=== PATIENT | male | born 1950 | race Caucasian/White ===

== ENCOUNTER 2018-11-21 13:06 | Emergency (ER) | payer OTHER, MEDICARE ==
[2018-11-21 13:16] VITALS: TEMP 97.6; BMI 32.3
--- NOTE | 2018-11-21 13:48 | PDOC ---
History of Present Illness - General Chief Complaint: Palpitations Stated Complaint: PALIPATATIONS Time Seen by Provider: 11/21/18 13:48 History Source: Patient Exam Limitations: No Limitations - History of Present Illness Initial Comments: Pt is a 68 yo M, with PMH of hypothyroidism (on synthroid 75 mcg/day), HLD, and sleep apnea, who is presenting via EMS after a sustained episode of palpitations and SVT (HR to 180s) for about 40 minutes. The pt states he has been playing tennis consistently for 5 days, did not eat this AM, and drank " too much coffee" this AM. When EMS arrived, they stated pt appeared to be in SVT on the monitor, with HR to the 180s, and then the SVT converted without intervention. Pt has never needed atropine in the past, but has had 1-2 other incidents with similar palpitations. Pt states he has a known RBBB, but has never been on any rate controlling medications or AC in the past. Pt denies any recent fevers/chills, headache, vision changes, syncope, chest pain, SOB, nausea /vomiting, abdominal pain, urinary symptoms, diarrhea/constipation, or leg swelling. Social: Pt denies any cigarette, alcohol, or drug use. Pt denies any recent travel or sick contacts. Surgical: no relevant history. Family: no relevant history. 11/21/18 17:14 Past History - Travel Traveled outside of the country in the last 30 days: No Close contact w/someone who was outside of country & ill: No - Past Medical History Allergies/Adverse Reactions: Allergies Allergy/AdvReac Type Severity Reaction Status Date / Time No Known Allergies Allergy Verified 11/21/18 13:15 Home Medications: Ambulatory Orders Aspirin 81 mg PO DAILY 11/21/18 Atorvastatin Ca [Lipitor] 40 mg PO HS 11/21/18 Gabapentin [Neurontin -] mg PO ASDIR 11/21/18 Levothyroxine Sodium [Levoxyl] mcg PO DAILY 11/21/18 Metoprolol Succinate 25 mg PO DAILY 30 Days #30 tab.er.24h 11/21/18 Cancer: Yes (bladder) Cardiac Disorders: Yes (known R bundle branch) Hx Myocardial Infarction: No COPD: No Hypercholesterolemia: Yes Thyroid Disease: Yes (hypo on synthroid) - Surgical History Abdominal Surgery: Yes (bladder sx s/p ca umbilical hernia repair.) - Suicide/Smoking/Psychosocial Hx Smoking History: Never smoked Have you smoked in the past 12 months: No Information on smoking cessation initiated: No Hx Alcohol Use: No Drug/Substance Use Hx: No Substance Use Type: None Hx Substance Use Treatment: No Review of Systems - Review of Systems Able to Perform ROS?: Yes Is the patient limited Citizen [place] proficient: No Constitutional: Yes: Weight Stable. No: Chills, Diaphoresis, Fever, Loss of Appetite, Malaise, Weakness HEENTM: No: Blurred Vision, Recent change in vision, Double Vision, Nose Congestion, Throat Pain, Throat Swelling Respiratory: No: Cough, Orthopnea, Shortness of Breath, Wheezing, Productive cough, Hemoptysis Cardiac (ROS): Yes: See HPI, Irregular Heart Rate, Palpitations. No: Chest Pain , Edema, Lightheadedness, Syncope, Chest Tightness ABD/GI: No: Constipated, Diarrhea, Nausea, Poor Appetite, Poor Fluid Intake, Vomiting : No: Burning, Dysuria, Frequency, Pain, Urgency Musculoskeletal: No: Back Pain, Joint Pain, Muscle Pain, Muscle Weakness Integumentary: No: Flushing, Rash, Sweating Neurological: No: Headache, Numbness, Paresthesia, Tingling, Weakness, Unsteady Gait, Ataxia, Dizziness Psychiatric: No: Sleep Pattern Change, Change in Appetite Endocrine: No: Flushing, Intolerance to Cold, Intolerance to Heat, Increased Hunger, Increased Thirst, Increased Urine, Change in Weight Hematologic/Lymphatic: No: Anemia, Blood Clots, Easy Bleeding, Easy Bruising All Other Systems: Reviewed and Negative *Physical Exam - Vital Signs Last Vital Signs Temp Pulse Resp BP Pulse Ox 97.6 F 80 16 132/78 100 11/21/18 13:10 11/21/18 13:10 11/21/18 13:10 11/21/18 13:10 11/21/18 13:10 - Physical Exam Comments: Vitals stable (HR 80), pt afebrile. Pt in NAD, normal body habitus. PE showed pt alert and oriented. 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 Head normocephalic, atraumatic. Eyes PERRLA, EOMI. Oropharynx without erythema or exudates, no LAD b/l. No nasal congestion, hearing intact. Clear heart sounds, S1/S2, no JVD, b/l pedal edema, or heart murmur. Clear lung sounds, no respiratory distress, wheezes, crackles, or accessory muscle use. No abdominal or CVA tenderness to palpation, no rebound, no guarding. Abdomen soft, non-distended, and with normoactive bowel sounds. Skin without jaundice or rash. 11/21/18 15:07 ED Treatment Course - LABORATORY CBC & Chemistry Diagram: 11/21/18 14:04 11/21/18 14:04 Medical Decision Making - Medical Decision Making Pt was seen at bedside, also will be seen by attending Dr. Canas. Pt presenting via EMS after a sustained episode of palpitations and SVT (HR to 180s) for about 40 minutes. The pt states he has been playing tennis consistently for 5 days, did not eat this AM, and drank "too much coffee" this AM. When EMS arrived , they stated pt appeared to be in SVT on the monitor, with HR to the 180s, and then the SVT converted without intervention. Pt has never needed atropine in the past, but has had 1-2 other incidents with similar palpitations. Pt states he has a known RBBB, but has never been on any rate controlling medications or AC in the past. Pt denies any recent fevers/chills, headache, vision changes, syncope, chest pain, SOB, nausea/vomiting, abdominal pain, urinary symptoms, diarrhea/constipation, or leg swelling. Ordered work-up including CBC, CMP, Mg, troponin, ECG, and TSH to r/o any cardiac ischemia and 2/2 causes of SVT, like hyperthyroidism, anemia, infection , and electrolyte imbalances Will continue to reassess pt and monitor for symptomatic improvement. ECG: NSR, LAD, and RBBB (chronic for pt - HR 74, MD 148, QRS 144, QTc 452). No TWIs or significant ST segment changes. No prior ECG for comparison. CBC, CMP, TSH all WNL. Trop <.02. Spoke with pts lead pharmacy technician, Dr. Rony Schultz ([phone]) who would like pt started on Metoprolol XL 25 mg PO Qday, and he will see the pt in the clinic this week. Pt has been NSR since arriving to the ED with HR in the 70s-80s. Sent toprol XL to pt pharmacy. Strict return precautions provided with pt understanding. 11/21/18 16:09 11/21/18 16:58 *DC/Admit/Observation/Transfer Diagnosis at time of Disposition: SVT (supraventricular tachycardia), Palpitations - Discharge Dispostion Disposition: HOME Condition at time of disposition: Good Decision to Admit order: No - Prescriptions Prescriptions: Metoprolol Succinate 25 mg PO DAILY 30 Days #30 tab.er.24h - Referrals Referrals: Ky Terrell [Primary Care Provider] - Rony Schultz [Non Staff, Medical] - - Patient Instructions Printed Discharge Instructions: Paroxysmal Supraventricular Tachycardia Additional Instructions: You were seen in the ER today for palpitations and irregular heart rhythm. The results of your labs today were normal. Please follow-up with your primary care doctor and lead pharmacy technician within 1-2 days to discuss your visit and make sure your symptoms have improved. Please return to the ER if you have any worsening palpitations, chest pain, shortness of breath, development of fevers or chills, loss of consciousness, inability to tolerate food or fluids, or any other concerns. Dr. Schultz suggested we start a new medication to control your heart rate. We have prescribed metoprolol 25 mg per day to your pharmacy. - Post Discharge Activity
[2018-11-21 14:39] LABS: BASO % 0.3 % (0-2.0); EOS % 0.8 % (0-4.5); HEMOGLOBIN 14.1 GM/dL (11.7-16.9); LYMPH % 34.1 % (8-40); MCH 29.2 pg (25.7-33.7); MCHC 33.6 g/dl (32.0-35.9); MEAN CELL VOLUME 86.9 fl (80-96); MEAN PLT VOLUME 7.2 fl (7.5-11.1); MONO % 5.9 % (3.8-10.2); NEUT % 58.9 % (42.8-82.8); PLATELET COUNT 292 K/MM3 (134-434); RBC 4.84 M/mm3 (4.00-5.60); RDW 13.9 % (11.9-15.9); WHITE BLOOD COUNT 7.8 K/mm3 (4.0-10.0)
[2018-11-21 15:07] LABS: ALBUMIN 3.9 g/dl (3.4-5.0); ALK PHOS 63 U/L (45-117); ANION GAP 8 MMOL/L (8-16); BILIRUBIN,TOTAL 0.6 mg/dL (0.2-1); BLOOD UREA NITROGEN 17 mg/dL (7-18); CALCIUM 8.9 mg/dL (8.5-10.1); CHLORIDE 103 mmol/L (98-107); CO2 24 mmol/L (21-32); CREATININE 0.9 mg/dL (0.55-1.3); GLUCOSE,RANDOM 85 mg/dL (74-106); MAGNESIUM 2.3 mg/dL (1.8-2.4); POTASSIUM 4.5 mmol/L (3.5-5.1); SGOT/AST 20 U/L (15-37); SGPT/ALT 37 U/L (13-61); SODIUM 135 mmol/L (136-145); TOT PROT 7.3 g/dl (6.4-8.2)
--- NOTE | 2018-11-21 15:07 | PDOC ---
Attending Attestation - HPI HPI: 11/21/18 15:27 The patient is a 68 year old male, with a significant past medical history of hypothyroidism, HLD, sleep apnea, history of SVT (resolves without intervention) , and known right bundle branch, who presents to the emergency department with, 45min of palpitations similar to prior episodes of SVT, now resolved while playing tennis. Patient is normally active and plays tennis 5 days/week. He notes his SVT normally resolves on its own after 40 minutes, however, this time it did not resolve after this time (symptoms resolved while en route). Patient has annual echocardiograms and stress test. He denies any recent chest pain or shortness of breath. He denies any recent fevers, chills, headache or dizziness. He denies any recent nausea, vomit, diarrhea or constipation. He denies any recent dysuria, frequency, urgency or hematuria. Allergies: NKDA Primary Care Physician: Dr. Rony Sidhu Vasc Tech: Dr. Carrasco <Evelin Medina - Last Filed: 11/21/18 15:27> - Resident Resident Name: Tiffany Zarco - ED Attending Attestation I have performed the following: I have examined & evaluated the patient, The case was reviewed & discussed with the resident, I agree w/resident's findings & plan, Exceptions are as noted - Physicial Exam PE: 11/21/18 16:26 GENERAL: The patient is awake, alert, and fully oriented, Nontoxic - in no acute distress. LUNGS: Breath sounds equal, clear to auscultation bilaterally. No wheezes, no rhonchi, no rales. HEART: Regular rate and rhythm, normal S1 and S2 without murmur, rub or gallop. PSYCH: Normal mood, normal affect. SKIN: Warm, Dry, normal turgor, - Medical Decision Making 11/21/18 15:11 68y M hx of hypothyroidism, sleep apnea, SVT (in the remote past, never had any interventions), presents with episode of SVT (180s, was noted as SVT by EMS) - but resolved spontaneously on EMS arrival prior to any medications or other interventions. Heendorses feeling lightheadedness and palpitations while he was playing tennis. He sat down to wait it out however didn't resolve after 30 minutes he called EMS. The patient is currently asymptomatic. 11/21/18 16:26 Pts labs unremrakble case dw pts Vasc Tech - requests starting metoprolol 25mg and will have him fu next week A portion of this note was documented by scribe services under my direction. I have reviewed the details of the note, within reason, and agree with the documentation with the following case summary and management plan written by me <Ran Canas - Last Filed: 11/21/18 16:26> Heart Score/ECG Review - ECG Impressions Comment:: 11/21/18 15:05 Twelve-lead EKG was performed and reviewed by me. There is normal sinus rhythm with a normal rate. Rate of 74 Left axis deviation Right bundle-branch block <Ran Canas - Last Filed: 11/21/18 16:26> Attestations - Attestations 11/21/18 15:27 Documentation prepared by Evelin Medina, acting as medical biller coder for Ran Canas MD. <Evelin Medina - Last Filed: 11/21/18 15:27>
[2018-11-21 16:10] VITALS: BP 123/80; PULSE 70
--- NOTE | 2018-11-21 16:34 | EKG ---
Test Reason : Blood Pressure : / mmHG Vent. Rate : 074 BPM Atrial Rate : 074 BPM P-R Int : 148 ms QRS Dur : 144 ms QT Int : 408 ms P-R-T Axes : 034 -71 -11 degrees QTc Int : 452 ms NORMAL SINUS RHYTHM POSSIBLE LEFT ATRIAL ENLARGEMENT LEFT AXIS DEVIATION RIGHT BUNDLE BRANCH BLOCK ABNORMAL ECG NO PREVIOUS ECGS AVAILABLE Confirmed by FABIAN BROWNE MD ([id number]) on 11/21/2018 4:34:16 PM Referred By: Confirmed By:FABIAN BROWNE MD
== END 2018-11-21 16:30 | disposition home or self-care (01) ==
LOC: JER 13:06
DX: I47.1 Supraventricular tachycardia (principal); E78.00 Pure hypercholesterolemia, unspecified; E03.9 Hypothyroidism, unspecified
CPT/HCPCS: 36415; 80053; 83735; 84443; 84484; 85025; 93005; 93010; 99284-25